=== PATIENT | male | born 1995 | race Two or more races ===

== ENCOUNTER 2017-02-27 17:42 | Emergency (ER) | payer OTHER ==
[~2017-02-27] VITALS: Ht 170.2 cm; Wt 63.6 kg
[2017-02-27] MEDS ORDERED: MORPHINE SULFATE 4 MG/ML, 1ML ONE (18:15)
[2017-02-27] MEDS ORDERED: ONDANSETRON 2MG/ML, 2ML ONE (18:15)
[2017-02-27] MEDS ORDERED: MORPHINE SULFATE 4 MG/ML, 1ML IVPush PRN (18:30)
[2017-02-27] MEDS ORDERED: SODIUM CHLORIDE FLUSH 10ML SYR IVF ONE (18:30)
[2017-02-27] MEDS ORDERED: ONDANSETRON 2MG/ML, 2ML IVPush ONE (18:30)
[2017-02-27] MEDS ORDERED: PROPOFOL 10 MG/ML, 20ML ONE (18:42)
[2017-02-27] MEDS ORDERED: PROPOFOL 10 MG/ML, 20ML IVPush ONE (19:00)
[2017-02-27 19:48] VITALS: BP 121/77
== END 2017-02-27 20:23 | disposition home or self-care (01) ==
LOC: ED 18:29
DX: S52.124A Nondisplaced fracture of head of right radius, initial encounter for closed fracture (principal); S53.104A Unspecified dislocation of right ulnohumeral joint, initial encounter; Z88.0 Allergy status to penicillin; W18.30XA Fall on same level, unspecified, initial encounter; Y93.66 Activity, soccer; Y92.39 Other specified sports and athletic area as the place of occurrence of the external cause; Y99.8 Other external cause status
CPT/HCPCS: 24600; 73070; 96374; 96375; 99152; 99153; 99285; J2405

== ENCOUNTER 2020-01-14 11:23 | Emergency (ER) | payer OTHER ==
[~2020-01-14] VITALS: Ht 172.7 cm; Wt 75.1 kg
[2020-01-14] MEDS ORDERED: ONDANSETRON ODT 8 MG PO ONE (12:30)
[2020-01-14] MEDS ORDERED: HYDROcodone/APAP 5/325 TABLET PO ONE (12:30)
--- NOTE | 2020-01-14 12:35 | NUR ---
REPORT TAKEN FROM SANDOR IVAN, PT TO CT AT THIS TIME. PT IS A&O, RESPS EVEN AND UNLABORED, PT ELECTS TO TAKE PAIN MEDS UPON RETURN.
[2020-01-14] MEDS ORDERED: ONDANSETRON ODT 8 MG ONE (13:07)
[2020-01-14] MEDS ORDERED: HYDROcodone/APAP 5/325 TABLET ONE (13:07)
--- NOTE | 2020-01-14 13:31 | NUR ---
PT MEDICATED PER EMAR, TOLERATED WELL. NEURO INTACT. AWAITING CT READ AND DISPO.,
[2020-01-14 14:05] VITALS: BP 113/85
--- NOTE | 2020-01-14 14:11 | NUR ---
PT GIVEN DC INSTRUCTIONS AND SCRIPT, EDUCATED REGARDING RX FOR NAPROXEN AND ZOFRAN. PT EDUCATED NOT TO DRIVE D/T MED GIVEN. PT STATES BOSS IS DRIVING HIM HOME. PT A&OX4, RESPS EVEN AND UNLABORED, AMBULATORY TO DC WITH STEADY GAIT . ALL QUESTIONS ANSWERED.
== END 2020-01-14 14:12 | disposition home or self-care (01) ==
LOC: ED 13:55
DX: S09.90XA Unspecified injury of head, initial encounter (principal); W22.8XXA Striking against or struck by other objects, initial encounter; Y93.89 Activity, other specified; Y92.69 Other specified industrial and construction area as the place of occurrence of the external cause; Y99.0 Civilian activity done for income or pay
CPT/HCPCS: 70450; 99284; Q0162